=== PATIENT | female | born 1955 | race Caucasian/White ===

== ENCOUNTER 2017-03-06 16:13 | Emergency (ER) | payer MEDICARE ==
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
--- NOTE | 2017-03-06 17:04 | RAD ---
CT of the chest without contrast. History: Pain after a fall, chest pain CT scan of the chest was done without contrast. Thyroid is homogeneous although mildly prominent. There is no mediastinal adenopathy or pleural effusion. There is a calcified granuloma in the right lung. There is no effusion. There is a moderate-sized hiatus hernia. The visualized portions of the liver and spleen are normal. The lungs are free of infiltrates. There is no pneumothorax. There is scoliosis in the thoracic spine. There is an old left eighth rib fracture which is ununited. There are old fractures of the anterior left seventh and eighth ribs. There is also an old ununited fracture of the left posterior 10th rib. The sternum appears intact. There is dorsal kyphosis with a mild compression fracture of T7 which could be old. Impression: 1. Mild T7 compression fracture with dorsal kyphosis. 2. Multiple old left rib fractures. 3. No acute infiltrates, no pleural effusion. 4. Calcified granuloma right lung. 5. Large hiatus hernia. One or more of the following individualized dose reduction techniques were utilized for this examination: 1. Automated exposure control 2. Adjustment of the mA and/or kV according to patient size 3. Use of iterative reconstruction technique
--- NOTE | 2017-03-06 17:06 | RAD ---
One or more of the following individualized dose reduction techniques were utilized for this examination: 1. Automated exposure control 2. Adjustment of the mA and/or kV according to patient size 3. Use of iterative reconstruction technique CT thoracic spine without contrast. History: Fell last night, thoracic pain Axial CT images were obtained through the thoracic spine. There is a mild compression fracture of T7. There is dorsal kyphosis. There are old left rib fractures. Exact age of the T7 fracture is not determined. There is thoracolumbar scoliosis. There is a hiatus hernia. No other acute fracture is noted. Impression: 1. Scoliosis. 2. Mild compression fracture T7 exact age is indeterminate. 3. Thoracolumbar scoliosis.
[2017-03-06] MEDS ORDERED: HYDROcodone/APAP 5/325MG 1 TAB TABLET PO ONE (17:15)
[2017-03-06 18:34] VITALS: BP 147/93
--- NOTE | 2017-03-07 07:30 | RAD ---
EXAM: Right knee, 4 views HISTORY: Right knee pain. Fall. COMPARISON: None. FINDINGS: Osteopenia is moderate to severe. No displaced fractures are seen. Multiple sclerotic lines within the metaphyses may represent growth arrest lines or prior stress reactions. Joint spaces are maintained. Alignment is normal. There is no joint effusion. IMPRESSION: 1. No displaced fracture, but there is relatively severe osteopenia. MRI could assess for a stress lesion or nondisplaced fracture if there is persistent concern.
== END 2017-03-06 18:34 | disposition home or self-care (01) ==
LOC: ER 16:13
DX: M25.561 Pain in right knee (principal); M54.6 Pain in thoracic spine; Z88.7 Allergy status to serum and vaccine; Z88.8 Allergy status to other drugs, medicaments and biological substances; V00.811A Fall from moving wheelchair (powered), initial encounter; Y93.89 Activity, other specified; Y92.22 Religious institution as the place of occurrence of the external cause; Y99.8 Other external cause status
CPT/HCPCS: 71250; 72128; 73564; 99284-25

== ENCOUNTER 2018-04-04 13:05 | Emergency (ER) | payer MEDICARE, OTHER ==
[~2018-04-04] VITALS: Ht 162.6 cm; Wt 73.5 kg
[2018-04-04 13:55] LABS: BASO % 0 % (0-3); EOS # 0.1 x10^3/uL (0.0-0.7); EOS % 2 % (0-3); HEMATOCRIT 37.9 % (36.0-47.0); HEMOGLOBIN 12.5 g/dL (12.0-15.5); LYMPH # 1.2 x10^3/uL (1.0-4.8); LYMPH % 35 % (24-48); MEAN CORPUSCULAR HEMOGLOBIN 28 pg (25-35); MEAN CORPUSCULAR HGB CONC 33 g/dL (31-37); MEAN CORPUSCULAR VOLUME 85 fL (79-100); MONO # 0.2 x10^3/uL (0.0-1.1); MONO % 5 % (0-9); NEUT % 58 % (31-73); PLATELET COUNT 216 x10^3/uL (140-400); RED BLOOD COUNT 4.46 x10^6/uL (3.50-5.40); RED CELL DISTRIBUTION WIDTH 15.1 % (11.5-14.5); WHITE BLOOD COUNT 3.4 x10^3/uL (4.0-11.0)
[2018-04-04 14:10] LABS: ALBUMIN 3.4 g/dL (3.4-5.0); ALBUMIN/GLOBULIN RATIO 0.9 (1.0-1.7); CALCIUM 9.1 mg/dL (8.5-10.1); CREATININE 0.7 mg/dL (0.6-1.0); GFR 85.1; POTASSIUM 3.8 mmol/L (3.5-5.1); TOTAL BILIRUBIN 0.1 mg/dL (0.2-1.0)
--- NOTE | 2018-04-04 14:30 | RAD ---
Right Lower Extremity Venous Doppler Ultrasound Indication: Right lower extremity pain and edema. Symptoms for a couple of months. Comparison: None. Procedure: Color Doppler, spectral Doppler, and grayscale images with and without compression are obtained in the area of the common femoral vein, superficial femoral vein - femoral vein junction, main femoral vein (superficial femoral vein) and popliteal vein. Veins of the proximal calf are also imaged. Findings: There is normal duplex flow, color flow and compressibility of all visualized vein segments. There is no evidence of deep venous thrombosis. Grayscale imaging demonstrates presence of interstitial edema involving the right lateral calf. Impression: No evidence of right lower extremity deep venous thrombosis. Electronically signed by: Juan Lora MD (04/04/2018 2:26 PM) [place] [id number]
[2018-04-04 14:45] VITALS: BP 130/65
--- NOTE | 2018-04-04 14:50 | PHYS DOC ---
Past History Past Medical History: Bipolar, High Cholesterol, Hypertension, Stroke, Other Past Surgical History: No Surgical History Alcohol Use: None Drug Use: None Adult General Chief Complaint Chief Complaint: LOWER EXTREMITY SWELLING [facility] This is a 62-year-old female presented complaining of right lower extremity pain and edema. Patient complaining of intermittent edema of right lower extremity for the last or 2-3 months that getting worse for the last 3-4 days. Patient also complaining of pain in anterior and posterior of right leg for the last 1 week that getting worse with activity. She denies chest pain, fever and chills, injury, history of DVT and PE. Patient states she takes hydrocodone at home without change of her pain. Patient called her primary care physician today and he recommended to come to emergency room for evaluation. Review of Systems Review of Systems Constitutional: Denies fever or chills [] Eyes: Denies change in visual acuity, redness, or eye pain [] HENT: Denies nasal congestion or sore throat [] Respiratory: Denies cough or shortness of breath [] Cardiovascular: No additional information not addressed in HPI [] GI: Denies abdominal pain, nausea, vomiting, bloody stools or diarrhea [] : Denies dysuria or hematuria [] Musculoskeletal: Denies back pain, reports joint pain [] Integument: Denies rash or skin lesions [] Neurologic: Denies headache, focal weakness or sensory changes [] Endocrine: Denies polyuria or polydipsia [] All other systems were reviewed and found to be within normal limits, except as documented in this note. Allergies Allergies Allergies Coded Allergies Type Severity Reaction Last Updated Verified Tetanus Vaccines and Toxoid Allergy Unknown angio edema 03/06/17 Yes cyclobenzaprine Allergy Unknown 03/06/17 Yes Physical Exam Physical Exam Constitutional: Well developed, well nourished, no acute distress, non-toxic appearance. [] HENT: Normocephalic, atraumatic Eyes: PERRLA, EOMI, conjunctiva normal, no discharge. [] Neck: Normal range of motion, no tenderness, supple, no stridor. [] Cardiovascular:Heart rate regular rhythm, no murmur [] Lungs & Thorax: Bilateral breath sounds clear to auscultation [] Skin: Warm, dry, no erythema, no rash. [] Back: No tenderness, no CVA tenderness. [] Extremities: Right lower extremity without erythema, 1+ edema, mild tenderness in anterior and posterior side of leg without sign of infection, good peripheral pulses and neurovascular evaluation.[] Neurologic: Alert and oriented X 3, normal motor function, normal sensory function, no focal deficits noted. [] Psychologic: Affect normal, judgement normal, mood normal. [] Current Patient Data Vital Signs Vital Signs Date Time Temp Pulse Resp B/P (MAP) Pulse Ox O2 Delivery O2 Flow Rate FiO2 04/04/18 13:20 98.2 90 18 95 Room Air Lab Results Laboratory Tests Test 04/04/18 13:40 White Blood Count 3.4 x10^3/uL (4.0-11.0) L Red Blood Count 4.46 x10^6/uL (3.50-5.40) Hemoglobin 12.5 g/dL (12.0-15.5) Hematocrit 37.9 % (36.0-47.0) Mean Corpuscular Volume 85 fL (79-100) Mean Corpuscular Hemoglobin 28 pg (25-35) Mean Corpuscular Hemoglobin Concent 33 g/dL (31-37) Red Cell Distribution Width 15.1 % (11.5-14.5) H Platelet Count 216 x10^3/uL (140-400) Neutrophils (%) (Auto) 58 % (31-73) Lymphocytes (%) (Auto) 35 % (24-48) Monocytes (%) (Auto) 5 % (0-9) Eosinophils (%) (Auto) 2 % (0-3) Basophils (%) (Auto) 0 % (0-3) Neutrophils # (Auto) 2.0 x10^3uL (1.8-7.7) Lymphocytes # (Auto) 1.2 x10^3/uL (1.0-4.8) Monocytes # (Auto) 0.2 x10^3/uL (0.0-1.1) Eosinophils # (Auto) 0.1 x10^3/uL (0.0-0.7) Basophils # (Auto) 0.0 x10^3/uL (0.0-0.2) Sodium Level 145 mmol/L (136-145) Potassium Level 3.8 mmol/L (3.5-5.1) Chloride Level 106 mmol/L (98-107) Carbon Dioxide Level 32 mmol/L (21-32) Anion Gap 7 (6-14) Blood Urea Nitrogen 13 mg/dL (7-20) Creatinine 0.7 mg/dL (0.6-1.0) Estimated GFR (Cockcroft-Gault) 85.1 BUN/Creatinine Ratio 19 (6-20) Glucose Level 115 mg/dL (70-99) H Calcium Level 9.1 mg/dL (8.5-10.1) Total Bilirubin 0.1 mg/dL (0.2-1.0) L Aspartate Amino Transferase (AST) 20 U/L (15-37) Alanine Aminotransferase (ALT) 21 U/L (14-59) Alkaline Phosphatase 102 U/L (46-116) FG-Rmi-X-Type Natriuretic Peptide 48 pg/mL (0-124) Total Protein 7.0 g/dL (6.4-8.2) Albumin 3.4 g/dL (3.4-5.0) Albumin/Globulin Ratio 0.9 (1.0-1.7) L EKG EKG [] Radiology/Procedures Radiology/Procedures [][place] [address] IMAGING REPORT Signed PATIENT: MOUNA ARGUETA ACCOUNT: [id number] : 1955 LOCATION: ER AGE: 62 SEX: F EXAM STATUS: REG ER ORD. PHYSICIAN: LUZ KAHN MD REASON: right lower extremity pain and edema PROCEDURE: VENOUS LOWER EXTREMITY RIGHT Right Lower Extremity Venous Doppler Ultrasound Indication: Right lower extremity pain and edema. Symptoms for a couple of months. Comparison: None. Procedure: Color Doppler, spectral Doppler, and grayscale images with and without compression are obtained in the area of the common femoral vein, superficial femoral vein - femoral vein junction, main femoral vein (superficial femoral vein) and popliteal vein. Veins of the proximal calf are also imaged. Findings: There is normal duplex flow, color flow and compressibility of all visualized vein segments. There is no evidence of deep venous thrombosis. Grayscale imaging demonstrates presence of interstitial edema involving the right lateral calf. Impression: No evidence of right lower extremity deep venous thrombosis. Electronically signed by: Juan Faust MD (04/04/2018 2:26 PM) [facility] DICTATED AND SIGNED BY: JUAN FAUST MD DATE: 04/04/18 1212 CC: LUZ KAHN MD; YONG SERVIN MD ~ [place] [address] IMAGING REPORT Signed PATIENT: MOUNA ARGUETA ACCOUNT: [id number] : 1955 LOCATION: ER AGE: 62 SEX: F EXAM STATUS: REG ER ORD. PHYSICIAN: LUZ KAHN MD REASON: pain PROCEDURE: TIBIA FIBULA RIGHT History: Right lower leg pain. Comparison: None. Findings: AP and lateral views of the right tibia and fibula. Osseous structures appear demineralized. No acute fracture or acute malalignment is identified. There is evidence of a diffuse soft tissue edema. Impression: No acute osseous abnormality identified. Electronically signed by: Juan Faust MD (04/04/2018 2:56 PM) [place] [id number] DICTATED AND SIGNED BY: JUAN FAUST MD DATE: 04/04/18 8877 CC: LUZ KAHN MD; YONG SERVIN MD ~ Course & Med Decision Making Course & Med Decision Making Pertinent Labs and Imaging studies reviewed. (See chart for details) Evaluation of patient in ER showed 62-year-old female patient with complaining of right leg pain and edema. Patient had unremarkable labs and x ray and ultrasound of right lower extremity and instructed to continue home hydrocodone. Eduardo wrap was applied in ER and patient acute to follow-up with her primary care physician. Dragon Disclaimer Dragon Disclaimer This electronic medical record was generated, in whole or in part, using a voice recognition dictation system. Departure Departure: Impression: Primary Impression: Right leg pain Disposition: HOME, SELF-CARE (at 1458) Condition: STABLE Referrals: YONG SERVIN MD (PCP) Patient Instructions: Muscle Strain Additional Instructions: Continue home pain medication Follow-up with your primary care physician in 3-5 days Return to ER if not getting better LUZ KAHN MD Apr 04, 2018 14:50
--- NOTE | 2018-04-04 15:00 | RAD ---
History: Right lower leg pain. Comparison: None. Findings: AP and lateral views of the right tibia and fibula. Osseous structures appear demineralized. No acute fracture or acute malalignment is identified. There is evidence of a diffuse soft tissue edema. Impression: No acute osseous abnormality identified. Electronically signed by: Juan Lora MD (04/04/2018 2:56 PM) [id number]
== END 2018-04-04 15:05 | disposition home or self-care (01) ==
LOC: ER 13:05
DX: M79.604 Pain in right leg (principal); R60.0 Localized edema; E78.00 Pure hypercholesterolemia, unspecified; I10 Essential (primary) hypertension; Z86.73 Personal history of transient ischemic attack (TIA), and cerebral infarction without residual deficits; Z88.7 Allergy status to serum and vaccine; Z88.8 Allergy status to other drugs, medicaments and biological substances
CPT/HCPCS: 36415; 73590; 80053; 83880; 85025; 93971; 99285-25

== ENCOUNTER → 2018-09-04 | Outpatient (CLI) | payer OTHER ==
--- NOTE | 2018-09-04 18:50 | RAD ---
CT of the chest without contrast, 09/04/2018: HISTORY: Follow-up pulmonary nodule, heavy smoker Noncontrast scans were obtained and compared to a study from 03/06/2017. Emphysematous changes are present in the lungs with scattered parenchymal scars. There is an unchanged 2 cm nodule in the right lower lobe with a dense central calcification compatible with a large granuloma. There are linear opacities in the medial aspect of the right middle lobe and the inferior lingula compatible with scarring and/or chronic atelectasis. No new pulmonary mass is seen. No bronchial narrowing is evident. There is a moderate sized hiatal hernia. There is calcific plaquing of the thoracic aorta without evidence of aneurysm. Minimal coronary artery calcifications are noted. The heart is not enlarged. No mediastinal adenopathy is evident. There are scattered degenerative changes in the spine. A moderate midthoracic vertebral compression deformity at T7 has worsened since 03/16/2017. IMPRESSION: 1. Large calcified granuloma in the right lower lobe. 2. Emphysema with parenchymal scarring. 3. Moderate sized hiatal hernia. 4. Minimal coronary artery calcifications. 5. Worsening moderate midthoracic vertebral compression fracture. PQRS Compliance Statement: One or more of the following individualized dose reduction techniques were utilized for this examination: 1. Automated exposure control 2. Adjustment of the mA and/or kV according to patient size 3. Use of iterative reconstruction technique Electronically signed by: Mark Anthony Tucker MD (09/04/2018 6:46 PM) [facility]
--- NOTE | 2018-09-04 18:55 | RAD ---
THYROID ULTRASOUND History: Thyroid mass Comparison: None. Technique: Multiple grayscale and color Doppler images of the thyroid gland were obtained. Findings: Measurements in length, AP (height), and transverse (width), respectively, unless otherwise stated. The right thyroid lobe measures 4.4 x 2.1 x 2.5 cm. There are 2 subcentimeter nodules in the right thyroid lobe that are mixed cystic and solid. There is a nodule in the inferior right thyroid lobe that is solid and hypoechoic measuring 9 x 8 x 9 mm. Nodule is TR4. Isthmus measures 6 mm. There is a nodule just left of midline in the isthmus that measures 12 x 10 x 13 mm. Nodule is TR3. The left thyroid lobe measures 4.3 x 2.2 x 2.4 cm. There is a TR5 nodule in the inferior left thyroid lobe that measures 5 x 9 x 7 mm. Nodule is far posterior. ACR Thyroid Imaging, Reporting And Data System (TI-RADS): White Paper Of The ACR TI-RADS Committee. Journal of the [employer], volume 14, issue 5, pages 587-595 (December 2016). IMPRESSION: Thyroid nodules as described above. Recommend ultrasound follow-up in 12 months. Electronically signed by: Santo Brady MD (09/04/2018 6:50 PM) [id number]
== END | disposition home or self-care (01) ==
LOC: CT 13:51
PROVIDERS: ATTEND Family Medicine
DX: E04.2 Nontoxic multinodular goiter (principal); J84.10 Pulmonary fibrosis, unspecified; K44.9 Diaphragmatic hernia without obstruction or gangrene; I25.10 Atherosclerotic heart disease of native coronary artery without angina pectoris
CPT/HCPCS: 71250; 76536